=== PATIENT | female | born 1955 | race Caucasian/White ===

== ENCOUNTER 2017-05-18 07:31 | Emergency (ER) | payer MEDICAID, MEDICARE ==
[~2017-05-18] VITALS: Ht 165.1 cm; Wt 75.0 kg
[2017-05-18] MEDS ORDERED: SODIUM CHLORIDE 0.9% 1,000 ML IV ONE (07:48)
[2017-05-18] MEDS ORDERED: ONDANSETRON HCL 4MG/2ML VIAL IV ONE ×2 (08:00→08:30)
[2017-05-18] MEDS ORDERED: LORAZEPAM 2MG/ML CPJ IV ONE (08:15)
[2017-05-18] MEDS ORDERED: LORAZEPAM 2MG/ML CPJ ONE (08:21)
[2017-05-18 08:44] LABS: CLARITY URINE TURBID (CLEAR); COLOR URINE ORANGE (YELLOW); GLUCOSE URINE NEGATIVE (NEGATIVE); KETONES URINE NEGATIVE (NEGATIVE); LEUKOCYTE ESTERASE URINE TRACE (NEGATIVE); NITRITE URINE NEGATIVE (NEGATIVE); OCCULT BLOOD URINE 3+ (NEGATIVE); PROTEIN URINE 1+ (NEGATIVE); SPECIFIC GRAVITY URINE 1.024 (1.005-1.030)
[2017-05-18] MEDS ORDERED: PHENYTOIN SODIUM 500 MG in SODIUM CHLORIDE 0.9% 50 ML IV ONE (08:45)
[2017-05-18] MEDS ORDERED: DEXAMETHASONE 10MG/ML 1ML VIAL IV ONE (08:45)
[2017-05-18] MEDS ORDERED: LABETALOL 5MG/ML SYR 20 MG/4 ML SYRINGE IV ONE ×2 (08:45→10:30)
[2017-05-18] MEDS ORDERED: MANNITOL 20% 250 ML IV SCH (08:45)
[2017-05-18] MEDS ORDERED: MANNITOL 12.5G (25%) VIAL 50ML IV ONE (08:45)
[2017-05-18 08:52] LABS: CARBON DIOXIDE 23 mEq/L (21-32); CHLORIDE 111 mEq/L (98-107); PARTIAL THROMBOPLASTIN TIME 21.2 sec (24.0-34.0); PROTHROMBIN TIME 10.2 sec
[2017-05-18 08:56] LABS: AMMONIA 26 uMol/L (<32)
[2017-05-18] MEDS ORDERED: SUCCINYLCHOLINE CHLORIDE 200MG/10ML VIAL IV ONE ×2 (09:00→14:24)
[2017-05-18] MEDS ORDERED: PROPOFOL 10MG/ML 100ML 100 ML IV ONE ×2 (09:00→10:34)
[2017-05-18 09:01] LABS: CREATINE KINASE 109 IU/L (26-192); ETHANOL BLOOD < 10 mg/dL; TROPONIN I < 0.02 ng/mL (0.00-0.04)
[2017-05-18 09:08] LABS: EOSINOPHILS % 4.8 % (0.0-5.0); HEMATOCRIT. 41.6 % (36.0-48.0); HEMOGLOBIN. 13.8 g/dL (12.0-16.0); LYMPHOCYTES % 26.9 % (20.0-50.0); MEAN CORPUSCULAR HEMOGLOBIN 29.7 pg (28.0-32.0); MEAN CORPUSCULAR VOLUME 89.2 fL (81.0-99.0); MEAN PLATELET VOLUME 7.7 fl (7.4-10.4); MONOCYTES % 5.4 % (2.0-8.0); NEUTROPHILS % 61.9 % (40.0-76.0); PLATELET 281 x1000/uL (130-400); RED BLOOD CELL COUNT 4.66 mill/uL (4.2-5.4); RED CELL DISTRIBUTION WIDTH 14.1 % (11.6-14.6)
[2017-05-18 09:15] LABS: *AMPHETAMINES SCREEN URINE NEGATIVE (NEGATIVE); *BARBITURATES SCREEN URINE NEGATIVE (NEGATIVE); *BENZODIAZEPINES SCREEN URINE NEGATIVE (NEGATIVE); *COCAINE SCREEN URINE NEGATIVE (NEGATIVE); CANNABINOID URINE SCREEN NEGATIVE (NEGATIVE); METHADONE URINE SCREEN NEGATIVE (NEGATIVE); OPIATES URINE SCREEN NEGATIVE (NEGATIVE); PHENCYCLIDINE URINE SCREEN NEGATIVE (NEGATIVE)
[2017-05-18] MEDS ORDERED: CEFTRIAXONE 1 G PREMIX 50 ML IV ONE (09:15)
[2017-05-18 10:16] LABS: BG BASE EXCESS -5.5 mmol/L (-2.0-2.0); BG CARBOXYHEMOGLOBIN 1.4 % (0.5-1.5); BG DEOXYHEMOGLOBIN 3.1 % (0.0-5.0); BG FRACTION INSPIRED OXYGEN 60; BG HCO3 ACT 20.9 mmol/L (22.0-26.0); BG METHEMOGLOBIN 0.4 % (0.0-1.5); BG OXYGEN SATURATION 96.8 % (92.0-98.5); BG OXYHEMOGLOBIN 95.1 % (94.0-97.0); BG PCO2 44.2 mmHg (35.0-45.0); BG PH 7.293 (7.350-7.450); BG PO2 98.5 mmHg (75.0-100.0); BG SAMPLE SITE RIGHT BRACHIAL; BG TIDAL VOLUME(mL) 450 mL; BG TOTAL HEMOGLOBIN 12.8 g/dL (12.0-18.0); BG VENT MODE VENT - A/C; BG VENT RATE 12 set
[2017-05-18 10:24] VITALS: BP 115/47
[2017-05-18] MEDS ORDERED: MORPHINE SULFATE 4 MG/ML CPJ (NOT FOR IM USE) IV ONE ×2 (10:29→10:30)
[2017-05-18] MEDS ORDERED: PROPOFOL 10MG/ML 100ML 100 ML IV SCH (10:30)
[2017-05-18] MEDS ORDERED: ETOMIDATE 2MG/ML 10ML VIAL IV ONE (14:24)
== END 2017-05-18 10:49 | disposition short-term general hospital (02) ==
LOC: ER 07:46 → EDBEDREQSVC 08:32 → EDBEDREQ 08:32 → CANBEDREQ 09:31 → ER 10:49
DX: I60.2 Nontraumatic subarachnoid hemorrhage from anterior communicating artery (principal); I62.01 Nontraumatic acute subdural hemorrhage; J96.00 Acute respiratory failure, unspecified whether with hypoxia or hypercapnia; N39.0 Urinary tract infection, site not specified; R94.6 Abnormal results of thyroid function studies; E87.2 Acidosis; R32 Unspecified urinary incontinence
CPT/HCPCS: 31500; 36415; 36600; 43753; 51702; 70450; 71010; 80053; 80305; 80307; 80329; 81001; 82140; 82375; 82550; 82805; 83605; 83690; 83880; 84443; 84484; 85025; 85610; 85730; 93005; 96361; 96365; 96368; 96375; 96376; 99291; G0482; J0330; J0696; J1100; J1165; J2060; J2150; J2270; J2405; J2704; J3490; Z7610; J7030; A4315